=== PATIENT | female | born 1970 | race American Indian/Alaskan Native ===

== ENCOUNTER 2019-07-08 13:32 | Observation (INO) | payer OTHER ==
--- NOTE | 2019-07-06 10:56 | Anesthesia Consultation ---
Anesthesia Consult and Med Hx Date of service: 07/08/19 - Airway Anesthetic Teeth Evaluation: Good, Crowns ROM Head & Neck: Adequate Mental/Hyoid Distance: Adequate Mallampati Class: Class II Intubation Access Assessment: Probably Good - Pulmonary Exam CTA: Yes - Cardiac Exam Cardiac Exam: RRR - Pre-Operative Health Status ASA Pre-Surgery Classification: ASA1 Proposed Anesthetic Plan: General Nerve Block: TAP - Pulmonary Hx Smoking: No Hx Respiratory Symptoms: No - Cardiovascular System Hx Hypertension: No Hx Heart Attack/AMI: No Hx Percutaneous Transluminal Coronary Angioplasty (PTCA): No - Central Nervous System CVA: No - Gastrointestinal Hx Gastroesophageal Reflux Disease: No - Endocrine Hx Renal Disease: No Hx Liver Disease: No Hx Insulin Dependent Diabetes: No Hx Non-Insulin Dependent Diabetes: No Hx Thyroid Disease: No - Hematic Hx Anemia: No - Other Systems Hx Obesity: No - Additional Comments Anesthesia Medical History Comments: No hx anesthetic complications. Patient will fax recent CBC results.
--- NOTE | 2019-07-06 17:21 | History and Physical Report ---
History of Present Illness Date of examination: 07/02/19 Chief complaint: Menorrhagia and Fibroids History of present illness: Past History : 3 Term Births: 2 Premature Births: 1 Living Children: 3 Para: 3 Mult. Births: 0 Prev : 0 Aborta: 0 Elect. Ab: 0 Spont. Ab: 0 Ectopics: 0 # 1 Delivery date: 01[birth year]19/1988 Delivery type: Anesthesia type: none Delivery location: [place] Infant Sex: Male weight: 7lbs 2 oz # 2 Delivery date: 06/24/1991 Delivery type: Anesthesia type: epidural Delivery location: [place] Sex: Male weight: 7lbs 7 oz # 3 Delivery date: 08/04/1994 Weeks Gestation: 36 Delivery type: Anesthesia type: none Delivery location: [place] Sex: Female weight: 5lbs 13 oz Comments: placenta previa [employer]ENT History Operations: positive Breast Lumpectomy: (L) benign Tubal Ligation pilonidal cyst removed Abdominoplasty Abnormal PAP: negative Infection History HIV Risk Eval: no Hep B Immunized: yes TB exposure: no Personal hx. of genital herpes: yes Partner hx. of genital herpes: no Rash/viral illness since LMP: no Hx of STD: None Active Medications (reviewed today): PRE WORKOUT SUPPLEMENT () Current Allergies (reviewed today): TRAMADOL HCL (TRAMADOL HCL) (Critical) Past Medical History: Reviewed history from 07/12/2009 and no changes required: constipation Past Surgical History: Reviewed history from 05/10/2019 and no changes required: positive Breast Lumpectomy: (L) benign Tubal Ligation pilonidal cyst removed Abdominoplasty Family History Summary: Reviewed history Last on 09/15/2017 and no changes required:07/06/2019 Other Family Member - Has No Family History of Small Bowel Cancer - Entered On: 05/13/2019 Other Family Member - Has No Family History of Stomach Cancer - Entered On: 05/13/2019 Other Family Member - Has No Family History of Pancreatic Cancer - Entered On: 05/13/2019 Other Family Member - Has No Family History of Ovarvian Cancer - Entered On: 05/13/2019 Other Family Member - Has No Family History of Kidney/Urinary Tract Cancer - Entered On: 05/13/2019 Other Family Member - Has No Family History of Spontaneous DVT-PE - Entered On: 05/13/2019 Other Family Member - Has No Family History of Brain Cancer - Entered On: 05/13/2019 Other Family Member - Has No Family History of Breast Cancer - Entered On: 05/13/2019 Other Family Member - Has No Family History of Biliary Tract Cancer - Entered On: 05/13/2019 MGM - Has Family History of Uterine Cancer - MGGM - Entered On: 05/13/2019 MGM - Has Family History Colon Cancer - Entered On: 05/13/2019 General Comments - FH: Family History of Diabetes : Maternal Grandparents Family History of Hypertension : Maternal Grandparents Social History: Patient is Smoking History: Patient has never smoked. Risk Factors: Smoked Tobacco Use: Never smoker Smokeless Tobacco Use: Never Drug use: no HIV high-risk behavior: no Alcohol use: yes Exercise: yes Seatbelt use: 100 % Mammogram History: Date of Last Mammogram: 01/08/2018 PAP Smear History: Date of Last PAP Smear: 04/21/2019 Physical Exam Appearance: well developed, well nourished, no acute distress Other Exams Lungs: no rales, rhonchi, or wheezes Heart: S1, S2, no murmur, rub, or gallop Genitourinary Exam Uterus: deferred for EUA Impression & Recommendations: Problem # 1: Menorrhagia (ICD-626.2) (SCL21-G57.0) Diagnosis explained to patient . Discussed with patient various medical, surgical and radiological therapies common for treatment including, but not limited to, myomectomy, hysterectomy and uterine artery embolization. Discussed risks and benefits of laparotomy, laparoscopy, vaginal and robotic assisted approaches for hysterectomies. Patient desires definitive treatment in the form of robot assisted laparoscopic total hysterectomy. The risks and alternatives for this surgery were reviewed with the patient. She was informed of the risks of the surgery including, but not limited to, pain, infection, bleeding possibly heavy enough to require a blood transfusion with associated risks of infections (hepatitis and HIV) and transfusion reactions, possible damage to bowel, bladder or ureter(s). Patient understands that this surgery with make her sterile. Indications to abort a robotic/laparoscopic procedure and perform an open procedure were explained. She desires ovarian conservation. She was informed she may require surgery later to have her ovaries removed for a benign or mailgnant condition Patient understands if her ovaries are removed she will become menopausal. Patient advised the small risks of spreading of malignancy if morcellation is required during the surgery patient understands and approves performing if necessary. Questions answered. Consent reviewed and signed The patient was instructed/informed the following: The normal length of hospital stay for this procedure. Nothing to eat or drink after midnight the evening prior to surgery. Clear liquids the day before surgery. Pre-op instruction sheets given. Wound care instructions given. She desires COVID-19 testing prior to surgery Problem # 2: Fibroids of uterus; Intramural (ICD-218.1) (ZMH66-A37.1) Medications and Allergies Allergies Allergy/AdvReac Type Severity Reaction Status Date / Time tramadol Allergy Hives Verified 07/01/19 12:55 Home Medications Medication Instructions Recorded Confirmed Last Taken Type No Known Home Medications [No 07/01/19 07/01/19 Unknown History Reported Home Medications] Active Meds: Active Medications Celecoxib (Celebrex) 200 mg PO PREOP NR Stop: 07/08/19 23:00 Fentanyl (Sublimaze) 100 mcg IV ONCE PRN PRN Reason: sedation for nerve block Stop: 07/08/19 23:00 Gabapentin (Gabapentin) 300 mg PO PREOP NR Stop: 07/08/19 23:00 Lactated Ringer's (Lactated Ringers) 1,000 mls @ 100 mls/hr IV DIRECT EMILY Stop: 07/08/19 23:59 Cefazolin Sodium (Ancef/Sterile Water 2 Gm/20 Ml) 2 gm in 20 mls @ 80 mls/hr IV PREOP NR; Protocol Magnesium Oxide (Mag-Ox) 400 mg PO PREOP EMILY Stop: 07/08/19 23:00 Midazolam HCl (Versed) 2 mg IV PREOP NR Stop: 07/08/19 23:00 Exam Vital Signs Temp Pulse Resp BP Pulse Ox 98.2 F 82 20 111/71 20 L 07/06/19 10:30 07/06/19 10:30 07/06/19 10:30 07/06/19 10:30 07/06/19 10:30 Assessment and Plan - Patient Problems (1) Menorrhagia Status: Chronic (2) Fibroid Status: Chronic
--- NOTE | 2019-07-08 09:28 | Anesthesia Day of Surgery ---
Anesthesia Day of Surgery - Day of Surgery Patient Examined: Yes Patient H&P Reviewed: Yes Patient is NPO: Yes
[2019-07-08 09:53] LABS: Hemoglobin 11.9 gm/dl (10.1-14.3); Mean Corpuscular HGB Conc 33 % (30-34); Mean Corpuscular Volume 82 fl (79-97); Platelet Count 222 K/mm3 (140-440); Red Blood Count 4.39 M/mm3 (3.65-5.03)
[~2019-07-08 13:32] MED LIST: BUPIVACAINE-EPINEPHRINE/PF 0.25%-1:200,000 (30 ML) VIAL INFILTRATI ONE; CALCIUM CHLORIDE 1,000 MG/10 ML SYRINGE IV ONE; CELECOXIB 200 MG CAP PO NR; CITRIC ACID-SOD CITRATE 0 ML IV ONE; CITRIC ACID-SOD CITRATE SOLN 500 ML IV SOLN IV ONE; GABAPENTIN 300 MG CAP PO NR; HYDROmorphone 1 MG/1 ML INJ IV PRN; LACTATED RINGERS 1,000 ML IV SCH; LACTATED RINGERS 1,000 ML ONE; LIDOCAINE MPF (2%) 20 MG/1 ML VIAL 5 ML ONE; MAGNESIUM OXIDE 400 MG TAB PO SCH; MIDAZOLAM 2 MG/2 ML INJ IV NR; MIDAZOLAM 2 MG/2 ML INJ ONE; NEOMY 40 MG/POLYMYXIN B 200,000 UNITS/ML (GU) AMPULE IR ONE; PHENYLEPHRINE 10 MG/1 ML INJ SDV ONE; PHENYLEPHRINE/NS 1,000 MCG/10 ML SYRINGE (OR USE) IV ONE; ROCURONIUM 50 MG/5 ML INJ IV ONE; SODIUM CHLORIDE 0.9% 0 ML ONE; SODIUM CHLORIDE 0.9% IRRIG SOLN 2000 ML IR ONE; THROMBIN (RECOMBINANT) 5,000 UNIT VIAL TP ONE; VASOPRESSIN 20 UNIT/1 ML INJ ONE; ceFAZolin/Water 2 GM/20 ML 2 GM/20 ML SYRINGE IV NR; dexAMETHasone 4 MG/ML VIAL ONE; ePHEDrine SULFATE 50 MG/1 ML INJ ONE; fentaNYL 100 MCG/2 ML INJ IV PRN; fentaNYL 100 MCG/2 ML INJ ONE; propofoL 200 MG/20 ML VIAL IV ONE
[2019-07-08] MEDS ORDERED: dexAMETHasone 20 MG/5 ML VIAL ONE (14:00)
[2019-07-08] MEDS ORDERED: KETOROLAC 30 MG/1 ML INJ ONE (14:00)
[2019-07-08] MEDS ORDERED: ONDANSETRON 4 MG/2 ML INJ ONE (14:00)
--- NOTE | 2019-07-08 14:02 | Operative Report ---
Operative Report Operative Report: Date: 07/08/2019 Preoperative diagnosis: 1. Menorrhagia 2. Uterine fibroids 3. Body mass index of 23.5 kg/m Postoperative diagnosis: 1. Menorrhagia 2. Uterine fibroids 3. Body mass index of 23.5 kg/m 4. Left ovarian cyst Procedure: 1. Robotic-assisted laparoscopic total hysterectomy with bilateral salpingectomy 2. Left ovarian cystectomy Surgeon: Pita Lal MD Shop Assistant: Atiya Gonzales Anesthesiologist: Dr. Jackie Underwood Anesthesia: General endotracheal anesthesia EBL: Approximately 100 mL Findings: EUA: Uterus palpated to approximately 15 weeks. Uterus was sounded to 12 cm. Procedure: Patient was taken to the OR and placed in the supine position. General anesthesia was induced and an oral gastric tube was placed. Her neck and head were placed on foam support. Foam eye protection with goggles were secured in place. Then foam face protection was placed and secured. Foam shoulder pads were then positioned on her shoulders for Trendelenburg positioning. She was then placed in dorsolithotomy position. Exam under an esthesia as above. The abdomen and vagina were then prepped and draped in the usual sterile fashion. Timeout was performed. A Soto catheter was inserted into the bladder with drainage of clear yellow urine. The operative speculum was introduced into the vagina and the anterior lip of the cervix was grasped with single-toothed tenaculum. The uterus was sounded to 12 cm. The cervix was progressively dilated to allow the large V care uterine manipulator. The bulb of the manipulator was inflated and the speculum and tenaculum were removed. The cup of the manipulator was placed around the cervix and the blue occluder of the manipulator was properly positioned in the vagina and secured. A laparotomy sponge that was saturated with a solution of polymyxin and saline was placed in the vagina to ensure pneumoperitoneum. Sterile gloves were placed and attention was turned to the abdomen. A 10 mm midline vertical supraumbilical incision was made approximately 10 cm superior to the elevated fundus of the uterus. A 10-12 mm trocar with the laparoscope and camera attached was introduced through this incision under direct visualization. The abdomen was insufflated. No obvious bowel, bladder, ureteral, or major vascular injury was noted. The patient was then placed in steep Trendelenburg position and the following trochars were placed under direct visualization: 8 mm robotic trochars were placed through incisions made in the bilateral midclavicular lower abdominal region approximately 10 cm lateral to the midline incision, and a 5 mm trocar was placed through an incision made in the right lower lateral pelvis. The 10 mm laparoscope was then replaced by a 5 mm laparoscope that was placed through the 5 millimeter lateral trocar. The 12 mm trocar was then removed and the Blayne Rebolledo fascial closure device was placed through the incision and a 0 Vicryl was placed through the fascia. Once the suture was secured the 12 mm trocar was reintroduced. Once the trochars were in the appropriate positions, the da Antony robot system was engaged. The EndoShears and bipolar device was placed through the 8 mm trochars and positioned then attention was turned to the console. The uterus was elevated and bilateral salpingectomy was performed. Each tube was removed through the 5 mm trocar and sent to pathology in separate containers. Then the utero-ovarian ligaments were clamped, cauterized and incised bilaterally using 30 W of energy. Then the round ligaments were clamped, cauterized and incised bilaterally. The anterior leaf of the broad ligament was elevated and with careful blunt and sharp dissection the bladder flap was created and dissected away from the lower uterine segment and cervix. The posterior leaf of the broad ligament was dissected away from the uterine vessels. The cup of the uterine manipulator was palpated both anteriorly and posteriorly. The bladder was further dissected away from the lower uterine segment. The uterine vessels were then clamped and cauterized bilaterally. Blanching of the uterus was then noted. Attention was again turned to the anterior lower uterine segment and the bladder was confirmed to be away from the operative field. Then attention was turned again to the posterior where the cup of the manipulator was palpated and a colpotomy was performed down to the cup. The incision was extended in the lateral position to the uterine vessels that were again clamped and cauterized and incised. Continuing along the cup of the manipulator in a circumferential manner the colpotomy was completed. Myomectomy was performed in order to facilitate removal of the uterus through the vaginal colpotomy. The uterus, fibroids and cervix were then removed through the vaginal incision. The pelvis was irrigated with warm normal saline. A moist laparotomy sponge was placed in the vagina to maintain pneumoperitoneum. The vagina cuff was reapproximated using V LOC 180 suture. Then a J stitch was performed to secure the suture. The laparotomy sponge was removed from the vagina. The left ovary was then elevated, and an ovarian cystectomy was performed. Benign appearing tissue consistent with corpus luteum was noted. The tissue was removed through the 5 mm right lateral trocar and sent to pathology in a separate container. Again the pelvis was copiously irrigated with polymixin in warm normal saline. No obvious evidence of bowel, bladder, ureteral, or major vascular injury was noted. Once hemostasis was noted, platelet rich plasma was applied to the operative field to ensure hemostasis. Platelet poor plasma was applied to decrease formation of adhesions. Then the instruments were removed, the robot was disengaged. The 10/12 mm trocar was removed and the fascia was ligated with the 0 Vicryl suture that was placed at the beginning of the procedure. The patient was taken out of Trendelenburg position, the abdomen was desufflated, the remaining trochars were removed. Incisions were reapproximated using 4-0 Monocryl in a subcuticular manner. Surgiseal was placed over the other incisions. The vagina was then inspected, the cuff was palpated to be intact and no bleeding was noted and clear yellow urine was draining into the Soto bag from the bladder at the end of the procedure. Counts were correct 3. Patient was taken to recovery room in stable condition.
[2019-07-08] MEDS ORDERED: SODIUM CHLORIDE 0.9% 1000 ML 1,000 ML ONE (14:03)
--- NOTE | 2019-07-08 15:22 | Post Anesthesia Evaluation ---
- Post Anesthesia Evaluation Patient Participated: Yes Airway Patent: Yes Stable Respiratory Function: Yes Nausea/Vomiting: No Temp > 96.8F: Yes Pain Manageable: Yes Adequeate Hydration: Yes Anesthesia Complications: No
[2019-07-08] MEDS ORDERED: METOCLOPRAMIDE 10 MG/2 ML INJ IV PRN (15:42)
[2019-07-08] MEDS ORDERED: MORPHINE 4 MG/1 ML INJ IV PRN (15:42)
[2019-07-08] MEDS ORDERED: ONDANSETRON 4 MG/2 ML INJ IV PRN (15:42)
[2019-07-08] MEDS ORDERED: MORPHINE 2 MG/1 ML INJ IV PRN (15:42)
[2019-07-08] MEDS ORDERED: METOCLOPRAMIDE 10 MG TAB PO PRN (15:42)
[2019-07-08] MEDS ORDERED: ACETAMINOPHEN 325 MG TAB PO PRN (16:00)
[2019-07-08] MEDS: ceFAZolin/NS 1 GM/50 ML 1 GM/50 ML BAG IV SCH ×2 (16:12→23:22)
[2019-07-08] MEDS: SODIUM CHLORIDE 0.9% 1000 ML 1,000 ML IV SCH (16:13)
--- NOTE | 2019-07-08 18:42 | History and Physical Report ---
History of Present Illness Date of examination: 07/08/19 Date of admission: 07/08/19 13:43 Medications and Allergies Allergies Allergy/AdvReac Type Severity Reaction Status Date / Time tramadol Allergy Hives Verified 07/01/19 12:55 Home Medications Medication Instructions Recorded Confirmed Last Taken Type Fluconazole [Diflucan TAB] 150 mg PO QDAY #1 tablet 07/08/19 Unknown Rx Active Meds: Active Medications Acetaminophen (Tylenol) 650 mg PO Q8H PRN PRN Reason: Pain MILD(1-3)/Fever >100.5/CUENCA Sodium Chloride (Nacl 0.9% 1000 Ml) 1,000 mls @ 125 mls/hr IV DIRECT EMILY Last Admin: 07/08/19 16:13 Dose: 125 mls/hr Documented by: Cefazolin Sodium (Ancef/Ns 1 Gm/50 Ml) 1 gm in 50 mls @ 100 mls/hr IV Q8H EMILY; Protocol Stop: 07/09/19 00:11 Last Admin: 07/08/19 16:12 Dose: 100 mls/hr Documented by: Ketorolac Tromethamine (Toradol) 30 mg IV Q8HR EMILY Stop: 07/09/19 14:01 Metoclopramide HCl (Reglan) 10 mg IV Q6H PRN PRN Reason: Nausea And Vomiting Metoclopramide HCl (Reglan) 10 mg PO Q6H PRN PRN Reason: Nausea And Vomiting Morphine Sulfate (Morphine) 2 mg IV Q4H PRN PRN Reason: Pain, Moderate (4-6) Morphine Sulfate (Morphine) 4 mg IV Q4H PRN PRN Reason: Pain , Severe (7-10) Ondansetron HCl (Zofran) 4 mg IV Q8H PRN PRN Reason: N/V unrelieved by Reglan Oxycodone/Acetaminophen (Percocet 5/325) 2 tab PO Q6H PRN PRN Reason: Pain, Moderate (4-6) Exam Vital Signs Temp Pulse Resp BP Pulse Ox 98.2 F 82 20 111/71 20 L 07/06/19 10:30 07/06/19 10:30 07/06/19 10:30 07/06/19 10:30 07/06/19 10:30 Results - Labs 07/08/19 09:25 Abnormal lab results 07/08/19 Range/Units 09:25 MCH 27 L (28-32) pg Assessment and Plan Patient resting in bed speaking with on her cell phone. Patient has no complaints. Abd: +BS, incisions c/d/i, Exts SCD's in place. Lungs CTAB. Operative findings and procedure explained. Pain management strategy and plan of care discussed. Questions encouraged and answered. She voiced understanding and agrees with plan of care. Patient requests Diflucan prescription a discharge in case she develops yeast infection d/t antibiotics. UO appears clear and adequate ~200mL in juárez bag - Patient Problems (1) Menorrhagia Current Visit: No Status: Resolved (2) Fibroid Current Visit: No Status: Resolved
[2019-07-08] MEDS: KETOROLAC 30 MG/1 ML INJ IV SCH (20:08)
[2019-07-09] MEDS: KETOROLAC 30 MG/1 ML INJ IV SCH ×2 (01:08→10:11)
[2019-07-09] MEDS: SODIUM CHLORIDE 0.9% 1000 ML 1,000 ML IV SCH (01:13)
[2019-07-09 05:59] LABS: Hematocrit 30.9 % (30.3-42.9); Hemoglobin 10.1 gm/dl (10.1-14.3)
[2019-07-09] MEDS ORDERED: FLUCONAZOLE 100 MG TAB PO ONE (07:00)
[2019-07-09] MEDS ORDERED: SIMETHICONE 80 MG CHEW TAB PO PRN (08:41)
--- NOTE | 2019-07-09 08:41 | Discharge Summary ---
Providers - Providers Date of Admission: 07/08/19 13:43 Date of discharge: 07/09/19 Attending physician: HERNÁN MAC Primary care physician: MILLY RICHARDS Hospitalization Condition: Good Procedures: RATLH, (B) salpingectomy, (L) ovarian cystectomy Hospital course: Normal Disposition: DC- TO HOME OR SELFCARE - Discharge Diagnoses (1) History of robot-assisted laparoscopic hysterectomy Status: Acute (2) Status post bilateral salpingectomy Status: Acute (3) Status post ovarian cystectomy Status: Acute (4) Menorrhagia Status: Resolved (5) Fibroid Status: Resolved Core Measure Documentation - Palliative Care Palliative Care/ Comfort Measures: Not Applicable - Core Measures Any of the following diagnoses?: none Exam - Constitutional Vitals: Temp Pulse Resp BP Pulse Ox 98.8 F 79 18 96/49 97 07/09/19 04:51 07/09/19 04:51 07/09/19 04:51 07/09/19 04:51 07/09/19 04:51 General appearance: Present: no acute distress - Neck Neck: Present: supple - Respiratory Respiratory effort: normal Respiratory: bilateral: CTA - Cardiovascular Rhythm: regular - Extremities Extremities: no ischemia, No edema - Abdominal General gastrointestinal: Present: soft, non-distended, normal bowel sounds - Integumentary Integumentary: Present: clear, warm, dry (incisions c/d/i, slight erythema at (L) incision reactive, no obvious evidence of infxn) - Musculoskeletal Musculoskeletal: strength equal bilaterally - Psychiatric Psychiatric: appropriate mood/affect, intact judgment & insight, memory intact, cooperative - Neurologic Neurologic: CNII-XII intact Plan Activity: other (No sex, no driving. Ambulate ~1mile on your property a day. Stay home, limit visitors to essential people who sould wear masks at all times. Void and use incentive spirometer every 1hour while awake.No exercise. ) Weight Bearing Status: Full Weight Bearing Diet: regular (Eat small meals frequently, avoid spicy, fatty high sodium foods. Drink ~70oz water a day) Wound: open to air, keep clean and dry Special Instructions: no heavy lifting (Greater than 25lbs) Additional Instructions: Please make sure you have Benadryl a home to take in case you have a reaction to Percocet. Follow up with: MILLY RICHARDS [Primary Care Provider] - 7 Days HERNÁN MAC MD [Staff Physician] - (as scheduled) Prescriptions: Fluconazole [Diflucan TAB] 150 mg PO QDAY #1 tablet oxyCODONE /ACETAMINOPHEN [Percocet 5/325 mg] 1 - 2 tab PO Q6H PRN #10 tablet PRN Reason: Pain, Moderate (4-6)
[2019-07-09] MEDS ORDERED: oxyCODONE /ACETAMINOPHEN 5-325MG TAB PO PRN (11:30)
[2019-07-09 11:52] VITALS: BP 98/41
== END 2019-07-09 12:40 | disposition home or self-care (01) ==
LOC: OR 13:32 → OB 13:43
PROVIDERS: ADMIT Obstetrics & Gynecology; ATTEND Obstetrics & Gynecology
DX: Z03.818 Encounter for observation for suspected exposure to other biological agents ruled out (principal); D25.2 Subserosal leiomyoma of uterus; D25.0 Submucous leiomyoma of uterus; D25.1 Intramural leiomyoma of uterus; N92.0 Excessive and frequent menstruation with regular cycle; N83.202 Unspecified ovarian cyst, left side; N72 Inflammatory disease of cervix uteri
CPT/HCPCS: 36415; 58573; 58662; 81025; 85014; 85018; 85027; 86850; 86900; 86901; 88302; 88305; 88307; 96365; 96366; 96375; 96376; A4217; G0378; J0690; J1100; J1885; J2250; J2370; J2405; J2704; J3010; J7030; J7120; S2900; U0003; 88309